=== PATIENT | female | born 1980 | race Caucasian/White ===

== ENCOUNTER 2016-08-13 15:05 | Emergency (ER) | payer OTHER | END 2016-08-13 16:00 | disposition home or self-care (01) | LOC: ER1 15:05 | DX: L84 Corns and callosities (principal); E11.9 Type 2 diabetes mellitus without complications; F17.210 Nicotine dependence, cigarettes, uncomplicated; Z79.84 Long term (current) use of oral hypoglycemic drugs | CPT/HCPCS: 99283 ==

== ENCOUNTER 2021-01-24 13:22 | Emergency (ER) | payer MEDICARE, OTHER ==
[~2021-01-24 13:22] MED LIST: CLEOCIN HCL300 MG PO; GLUCOPHAGE500 MG PO; HYDROCHLOROTH12.5 M1 PO; HYDROCODON-ACE1 EAC2 PO; KEFLEX CAP 500500 MG PO; NAPROSYN500 MG PO; NEURONTIN800 MG PO; NORCO 7.5-3251 EACH PO; PERCOCET 10-321 EACH PO; PERCOCET 5/325 T1 EA PO; PERCOCET 7.5-31 EACH PO; PRINIVIL20 MG PO
[2021-01-24] MEDS ORDERED: AUGMENTIN 875-1 EACH PO (13:56)
[2021-01-24] MEDS ORDERED: BACTROBAN OINT22 GM EXT (13:56)
== END 2021-01-24 14:09 | disposition home or self-care (01) ==
LOC: ER1 13:22
DX: S81.852A Open bite, left lower leg, initial encounter (principal); Z23 Encounter for immunization; F17.210 Nicotine dependence, cigarettes, uncomplicated; W54.0XXA Bitten by dog, initial encounter
CPT/HCPCS: 82962; 90471; 90715; 99283

== ENCOUNTER 2021-05-11 14:07 | Emergency (ER) | payer MEDICARE, OTHER ==
[~2021-05-11 14:07] MED LIST changes: +AUGMENTIN 875-1 EACH PO; +BACTROBAN OINT22 GM EXT
[2021-05-11 15:15] LABS: HEMOGLOBIN 14.6 gm/dl (12.3-15.3); RED BLOOD COUNT 5.36 M/UL (4.00-5.10); WHITE BLOOD COUNT 16.4 K/UL (4.5-11.0)
[2021-05-11 16:00] LABS: BUN/CREATININE RATIO 7 (0-10)
[2021-05-11] MEDS ORDERED: BENTYL 20MG TAB20 MG PO (21:04)
[2021-05-11] MEDS ORDERED: OMNICEF 300 MG300 MG PO (21:04)
[2021-05-11] MEDS ORDERED: ZOFRAN ODT 4 MG4 MG PO (21:04)
== END 2021-05-11 21:22 | disposition home or self-care (01) ==
LOC: ER1 14:07
PROVIDERS: Emergency Medicine
DX: N39.0 Urinary tract infection, site not specified (principal); E11.9 Type 2 diabetes mellitus without complications; F17.210 Nicotine dependence, cigarettes, uncomplicated
CPT/HCPCS: 74018; 80053; 81001; 82550; 82553; 83690; 84484; 85025; 87077; 87086; 87186; 96374; 96375; 96376; 99284; J0696; J1885; J2270; J2405; Q9967

== ENCOUNTER 2021-12-13 14:42 | Inpatient (IN) | payer MEDICARE, OTHER ==
[~2021-12-13] VITALS: Ht 162.6 cm; Wt 102.7 kg
[~2021-12-13 14:42] MED LIST changes: +BENTYL 20MG TAB20 MG PO; +OMNICEF 300 MG300 MG PO; +ZOFRAN ODT 4 MG4 MG PO
[2021-12-13 16:03] LABS: HEMOGLOBIN 7.3 gm/dl (12.3-15.3); RED BLOOD COUNT 2.74 M/UL (4.00-5.10); WHITE BLOOD COUNT 12.8 K/UL (4.5-11.0)
[2021-12-13 19:55] LABS: HEMOGLOBIN 7.1 gm/dl (12.3-15.3)
[2021-12-14 04:09] LABS: HEMOGLOBIN 7.5 gm/dl (12.3-15.3); RED BLOOD COUNT 2.69 M/UL (4.00-5.10); WHITE BLOOD COUNT 11.2 K/UL (4.5-11.0)
[2021-12-14] MEDS ORDERED: HYDROCODON-ACE1 EAC2 PO (10:48)
[2021-12-14 18:47] LABS: HEMOGLOBIN 7.4 gm/dl (12.3-15.3)
[2021-12-15 02:35] LABS: HEMOGLOBIN 7.4 gm/dl (12.3-15.3); RED BLOOD COUNT 2.63 M/UL (4.00-5.10); WHITE BLOOD COUNT 11.8 K/UL (4.5-11.0)
[2021-12-16 02:32] LABS: HEMOGLOBIN 7.4 gm/dl (12.3-15.3); RED BLOOD COUNT 2.75 M/UL (4.00-5.10); WHITE BLOOD COUNT 9.5 K/UL (4.5-11.0)
[2021-12-17 03:05] LABS: WHITE BLOOD COUNT 11.6 K/UL (4.5-11.0)
[2021-12-17 03:27] LABS: RED BLOOD COUNT 2.31 M/UL (4.00-5.10)
[2021-12-17 03:28] LABS: HEMOGLOBIN 6.2 gm/dl (12.3-15.3)
--- NOTE | 2021-12-17 03:53 | NUR ---
PT HAD A CRITICAL LAB VALUE OF HGB 6.2 AFTER PT LEFT FOR [facility]. RN CALLED KIMBERLY OSBORNE, THE RN [facility] TO LET HER KNOW HER TIME OF DEPARTURE AND HER HGB VALUE.
== END 2021-12-17 03:39 | disposition short-term general hospital (02) | DRG 683 ==
LOC: ER1 14:42 → PROG CARE 20:44 → CDU 20:44 → PROG CARE 12-14 00:15
PROVIDERS: Internal Medicine; Internal Medicine Infectious Disease; Internal Medicine Nephrology; Physician Assistant; ADMIT Internal Medicine
DX: N17.0 Acute kidney failure with tubular necrosis (principal); E87.2 Acidosis; N30.00 Acute cystitis without hematuria; Z16.12 Extended spectrum beta lactamase (ESBL) resistance; E11.9 Type 2 diabetes mellitus without complications; M51.36 Other intervertebral disc degeneration, lumbar region; F17.200 Nicotine dependence, unspecified, uncomplicated; D50.9 Iron deficiency anemia, unspecified; N13.6 Pyonephrosis; R33.9 Retention of urine, unspecified; G89.4 Chronic pain syndrome; K27.9 Peptic ulcer, site unspecified, unspecified as acute or chronic, without hemorrhage or perforation; M54.9 Dorsalgia, unspecified; E86.0 Dehydration; Z20.822 Contact with and (suspected) exposure to COVID-19; E87.5 Hyperkalemia; K59.00 Constipation, unspecified; E66.9 Obesity, unspecified; B96.20 Unspecified Escherichia coli [E. coli] as the cause of diseases classified elsewhere; Z90.49 Acquired absence of other specified parts of digestive tract; Z98.51 Tubal ligation status; Z98.890 Other specified postprocedural states; Z89.511 Acquired absence of right leg below knee; Z88.5 Allergy status to narcotic agent; Z83.3 Family history of diabetes mellitus; Z68.38 Body mass index [BMI] 38.0-38.9, adult
CPT/HCPCS: 36415; 36430; 80048; 80053; 80307; 81001; 82272; 82550; 82553; 82607; 82728; 82746; 82803; 82962; 83036; 83540; 83550; 83605; 83690; 84484; 85014; 85018; 85025; 85045; 86850; 86900; 86901; 86920; 87040; 87077; 87086; 87186; 93005; 94664; 96374; 96375; 96376; 99285; C9113; J0696; J1335; J1756; J2270; J2405; J2550; J7030; P9016; Q9967

== ENCOUNTER 2022-01-05 11:34 | Emergency (ER) | payer MEDICARE, OTHER ==
[~2022-01-05 11:34] MED LIST changes: +NEURONTIN600 MG PO; -NEURONTIN800 MG PO
[2022-01-05 13:00] LABS: HEMOGLOBIN 11.1 gm/dl (12.3-15.3); RED BLOOD COUNT 3.97 M/UL (4.00-5.10)
[2022-01-05] MEDS ORDERED: ARTHRITIS PAIN150 GM TP (15:11)
== END 2022-01-06 05:42 | disposition short-term general hospital (02) ==
LOC: ER1 11:34
PROVIDERS: Emergency Medicine
DX: N39.0 Urinary tract infection, site not specified (principal); E87.6 Hypokalemia; E11.9 Type 2 diabetes mellitus without complications; F17.210 Nicotine dependence, cigarettes, uncomplicated; Z88.5 Allergy status to narcotic agent
CPT/HCPCS: 80053; 81001; 83605; 84703; 85025; 87040; 96374; 96375; 96376; 99284; J0696; J2270; J2405

== ENCOUNTER → 2022-01-24 | Outpatient (CLI) | payer MEDICARE, OTHER ==
[~2022-01-24] MED LIST changes: +ARTHRITIS PAIN150 GM TP
== END ==
LOC: MRI 10:00
DX: C53.9 Malignant neoplasm of cervix uteri, unspecified (principal)
CPT/HCPCS: 36415; 72195; 82565; 84520; 84703